=== PATIENT | female | born 1935 | race Caucasian/White ===

== ENCOUNTER 2017-03-11 19:23 | Emergency (ER) | payer MEDICARE, BC ==
[~2017-03-11] VITALS: Ht 152.4 cm; Wt 107.0 kg
[2017-03-11 19:35] VITALS: Ht 152.4 cm; Wt 107.0 kg
[2017-03-11] MEDS ORDERED: ONDANSETRON 4 MG INJ IV STA (19:39)
[2017-03-11] MEDS ORDERED: SOD CHLORIDE 0.9% 1,000 ML IV STA (19:39)
[2017-03-11] MEDS ORDERED: FAMOTIDINE 20 MG INJ IV STA (19:39)
[2017-03-11] MEDS ORDERED: LORAZEPAM 2 MG INJ IV ONE (20:00)
[2017-03-11 20:11] LABS: BASOPHILS % 0.2 % (0.0-2.0); EOSINOPHILS # 0.1 10^3/ul (0.0-0.5); EOSINOPHILS % 0.5 % (0.0-7.0); HEMATOCRIT 42.5 % (37.0-47.0); HEMOGLOBIN 14.4 g/dl (12.0-16.0); LYMPHOCYTES # 0.8 10^3/ul (0.8-2.9); LYMPHOCYTES % 4.3 % (15.0-51.0); MEAN CORPUSCULAR HEMOGLOBIN 30.8 pg (29.0-33.0); MEAN CORPUSCULAR HGB CONC 33.9 g/dl (32.0-37.0); MEAN CORPUSCULAR VOLUME 90.8 fl (82.0-101.0); MEAN PLATELET VOLUME 10.7 fl (7.4-10.4); MONOCYTE # 0.8 10^3/ul (0.3-0.9); MONOCYTES % 4.4 % (0.0-11.0); NEUTROPHIL # 15.8 10^3/ul (1.6-7.5); NEUTROPHILS % 90.1 % (39.0-77.0); PLATELET COUNT 268 10^3/UL (140-415); RED BLOOD COUNT 4.68 10^6/ul (4.20-5.40); WHITE BLOOD COUNT 17.5 10^3/ul (4.8-10.8)
[2017-03-11 20:34] LABS: ALANINE AMINOTRANSFERASE 55 IU/L (13-69); ALBUMIN 4.1 g/dl (3.3-4.9); ALKALINE PHOSPHATASE 150 IU/L (42-121); AMYLASE 44 U/L (11-123); ANION GAP 14 (8-16); ASPARTATE AMINO TRANSFERASE 70 IU/L (15-46); BILIRUBIN,INDIRECT 0.2 mg/dl (0-1.1); BILIRUBIN,TOTAL 0.2 mg/dl (0.2-1.3); BLOOD UREA NITROGEN 19 mg/dl (7-20); CALCIUM 9.2 mg/dl (8.4-10.2); CARBON DIOXIDE 27 mmol/L (21-31); CHLORIDE 101 mmol/L (97-110); CREATININE 0.66 mg/dl (0.44-1.00); GLUCOSE 158 mg/dl (70-220); POTASSIUM 4.1 mmol/L (3.5-5.1); SODIUM 138 mmol/L (135-144); TOTAL PROTEIN 8.2 g/dl (6.1-8.1)
[2017-03-11] MEDS ORDERED: ATOR20TA38 PO (20:42)
[2017-03-11 20:43] LABS: TROPONIN-I < 0.012 ng/ml (0.00-0.12)
[2017-03-11] MEDS ORDERED: ATEN50TA PO (20:43)
[2017-03-11] MEDS ORDERED: BENA20TA48 PO (20:43)
[2017-03-11] MEDS ORDERED: ERGO500037 PO (20:43)
[2017-03-11] MEDS ORDERED: NORT25CA PO (20:44)
[2017-03-11] MEDS ORDERED: BUS5 PO (20:44)
[2017-03-11] MEDS ORDERED: AMLO-147 PO (20:44)
[2017-03-11] MEDS ORDERED: HYDR25TA6 PO (20:45)
[2017-03-11] MEDS ORDERED: OMEP20CA16 PO (20:45)
[2017-03-11] MEDS ORDERED: VALS160T20 PO (20:45)
[2017-03-11] MEDS ORDERED: TYL500 PO (20:46)
[2017-03-11] MEDS ORDERED: LABETALOL HCL 20MG INJ IV ONE (21:00)
[2017-03-11] MEDS ORDERED: DILTIAZEM 25 MG INJ IV ONE (21:30)
--- NOTE | 2017-03-11 22:00 | RADRPT ---
PROCEDURE: XR Chest. CLINICAL INDICATION: Chest pain TECHNIQUE: Single frontal view of the chest. COMPARISON: None. FINDINGS: Cardiomegaly and atherosclerotic calcifications in the thoracic aorta. Hypoinflated lungs which acce ntuate pulmonary vascular markings. Mild vascular crowding at the left lung base. Otherwise, the dio gs are substantially clear. No signs of pleural fluid or pneumothorax are seen. The osseous structur es and soft tissues are unremarkable. IMPRESSION: 1. Cardiomegaly and atherosclerotic calcifications in the thoracic aorta. 2. Hypoinflated lungs which accentuates pulmonary vascular markings. 3. Mild vascular crowding at the left lung base. RPTAT: [facility] Physician Katelyn Date Time Electronically viewed and signed by Physician Katelyn on 03/11/2017 21:59 RS/
--- NOTE | 2017-03-11 23:02 | ERD ---
ER Documentation Chief Complaint Chief Complaint HTN x 2 hours, took htn med 1 hr ago, vomiting x 30 min. HPI This is an 81-year-old female presents to the emergency department complaining of elevated blood pressure. The patient indicates she was feeling lightheaded which she has experienced in the past with hypertension. She took her blood pressure at home and her systolic was 200/100. She took an amlodipine and atenolol at the onset of her symptoms which was 1 hour ago. She indicated that just prior to arrival she continued to have lightheadedness and dizziness and had an episode of nonbloody nonbilious emesis. 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 She is very susceptible to emesis according to the daughter but has not complained of a headache or neck pain. She has had no fevers or shaking or chills. She denies any abdominal pain. She has no chest pain or pressure that radiates to the neck arm back or jaw. ROS All systems reviewed and are negative except as per history of present illness. Medications Home Meds Reported Medications Acetaminophen* (Tylenol*) 500 Mg Tab, 500 MG PO NEEDED Y for MILD PAIN LEVEL 1-3, TAB 03/11/17 Hydrochlorothiazide* (Hydrochlorothiazide*) 25 Mg Tab, 25 MG PO DAILY, #30 TAB 03/11/17 Omeprazole* (Omeprazole*) 20 Mg Capsule.dr, 20 MG PO DAILY, #30 CAP 03/11/17 Valsartan* (Diovan*) 160 Mg Tablet, 160 MG PO QAM, TAB 03/11/17 Amlodipine Besylate* (Amlodipine Besylate*) 10 Mg Tablet, 10 MG PO DAILY, #30 TAB 03/11/17 Buspirone Hcl* (Buspar*) 5 Mg Tab, 5 MG PO BID, TAB 03/11/17 Nortriptyline Hcl* (Nortriptyline Hcl*) 25 Mg Capsule, 25 MG PO BID, CAP 03/11/17 Atenolol* (Atenolol*) 50 Mg Tablet, 50 MG PO BID, #60 TAB 03/11/17 Benazepril Hcl* (Benazepril Hcl*) 20 Mg Tablet, 20 MG PO DAILY, #30 TAB 03/11/17 Ergocalciferol (Vitamin D2) (VITAMIN D2) 50,000 Unit Capsule, 17551 UNIT PO Q7D , CAP 03/11/17 Atorvastatin Calcium* (Atorvastatin Calcium*) 20 Mg Tablet, 20 MG PO QHS, #30 TAB 03/11/17 Allergies Allergies: Coded Allergies: No Known Allergy (Unverified , 03/11/17) PMhx/Soc Medical and Surgical Hx: pt denies Surgical Hx History of Surgery: No Anesthesia Reaction: No Hx Neurological Disorder: Yes (ANXIETY ) Hx Respiratory Disorders: No Hx Cardiac Disorders: Yes (HTN) Hx Psychiatric Problems: No Hx Miscellaneous Medical Probl: No Hx Alcohol Use: No Hx Substance Use: No Hx Tobacco Use: No Smoking Status: Unknown if ever smoked Physical Exam Vitals Vital Signs Date Time Temp Pulse Resp B/P Pulse Ox O2 Delivery O2 Flow Rate FiO2 03/11/17 20:00 98.2 81 20 174/81 98 Nasal Cannula 03/11/17 19:35 98.2 97 20 181/92 92 Physical Exam Constitutional:Well-developed. Well-nourished. HEENT:Normocephalic. Atraumatic.Pupils were equal round reactive to light. Moist mucous membranes.No tonsillar exudates. Fundoscopy exam shows sharp optic disks and venous pulsations were present. Neck: No nuchal rigidity. No lymphadenopathy. No posterior cervical spine tenderness or step-offs. Respiratory: Not using accessory muscles of respiration.Lungs were clear to auscultation bilaterally. No rhonchi. No rales. No wheezing. Cardiovascular: Regular rate regular rhythm.No murmurs. No rubs were appreciated.S1, S2 normal. Distal pulses are palpable 2+ bilaterally. GI: Abdomen was soft. Nontender. Non Distended. No pulsatile abdominal masses or bruits. No rebound. No guarding. Bowel sounds were present and normal. Muscle skeletal: Full range of motion of both the upper and lower extremities bilaterally.Normal muscle tone.No assymetrical calf tenderness or swelling. Skin: No petechia, no purpura. No lesions on the palms or the soles of the feet. No maculopapular rash. NEURO: Patient was alert, awake, orientated x3. Left sided facial droop with mass over the right mandible which is the patient's baseline from previous tumor removal. Patient only able to ambulate with a walker and therefore at this time gait was not observed.Speech had started 3 which is also the patient' s baseline from previous surgical intervention of the tumor. No focal neurological deficits. Result Diagram: 03/11/17195303/11/171953 Results 24 hrs Laboratory Tests Test 03/11/17 19:54 White Blood Count 17.510^3/ul Red Blood Count 4.6810^6/ul Hemoglobin 14.4g/dl Hematocrit 42.5% Mean Corpuscular Volume 90.8fl Mean Corpuscular Hemoglobin 30.8pg Mean Corpuscular Hemoglobin Concent 33.9g/dl Red Cell Distribution Width 14.0% Platelet Count 29831^3/UL Mean Platelet Volume 10.7fl Neutrophils % 90.1% Lymphocytes % 4.3% Monocytes % 4.4% Eosinophils % 0.5% Basophils % 0.2% Nucleated Red Blood Cells % 0.0/100WBC Neutrophils # 15.810^3/ul Lymphocytes # 0.810^3/ul Monocytes # 0.810^3/ul Eosinophils # 0.110^3/ul Basophils # 0.010^3/ul Nucleated Red Blood Cells # 0.010^3/ul Sodium Level 138mmol/L Potassium Level 4.1mmol/L Chloride Level 101mmol/L Carbon Dioxide Level 27mmol/L Anion Gap 14 Blood Urea Nitrogen 19mg/dl Creatinine 0.66mg/dl Glucose Level 158mg/dl Calcium Level 9.2mg/dl Total Bilirubin 0.2mg/dl Direct Bilirubin 0.00mg/dl Indirect Bilirubin 0.2mg/dl Aspartate Amino Transf (AST/SGOT) 70IU/L Alanine Aminotransferase (ALT/SGPT) 55IU/L Alkaline Phosphatase 150IU/L Troponin I < 0.012ng/ml Total Protein 8.2g/dl Albumin 4.1g/dl Globulin 4.10g/dl Albumin/Globulin Ratio 1.00 Amylase Level 44U/L Lipase 29U/L Current Medications Medications (Trade) Dose Ordered Sig/Krishna Route PRN Reason Start Time Stop Time Status Last Admin Dose Admin Sodium Chloride (NS) 1,000 ml @ 1,000 mls/hr Q1H STAT IV 03/11/17 19:39 03/11/17 20:38 DC 03/11/17 20:29 Ondansetron HCl (Zofran Inj) 4 mg ONCE STAT IV 03/11/17 19:39 03/11/17 19:41 DC 03/11/17 19:58 Famotidine (Pepcid Iv) 20 mg ONCE STAT IV 03/11/17 19:39 03/11/17 19:41 DC 03/11/17 19:58 Lorazepam (Ativan) 1 mg ONCE ONCE IV 03/11/17 20:00 03/11/17 20:01 DC 03/11/17 19:58 Labetalol HCl (Labetalol) 10 mg ONCE ONCE IV 03/11/17 21:00 03/11/17 21:05 DC 03/11/17 22:16 Diltiazem HCl (Cardizem Iv) 10 mg ONCE ONCE IV 03/11/17 21:30 03/11/17 21:31 Cancel Procedures/MDM This patient presented to the emergency department with severely elevated blood pressure. My differential diagnosis included but was not limited to conditions that could end-organ damage such as acute coronary syndrome, acute pulmonary edema, aortic dissection, subarachnoid hemorrhage, intracerebral hemorrhage, cerebral infarction, withdrawal syndromes from beta blockers, or states of catecholamine excess such as pheochromocytoma or drug intoxication. Ancillary lab work was obtained. There was no elevation in the BUN and creatinine to suggest acute renal failure. Electrolytes were normal. Cardiac enzyme was normal and the 12 lead EKG showed no acute ischemic changes or left ventricular hypertrophy. 12 Lead EKG tracing ordered and reviewed by myself showed: Normal sinus rhythm of 90 bpm and no arrhythmia. SD interval normal. QRS duration normal. Left ventricular hypertrophy No ST segment elevation No ST segment depression. No changes consistent with acute ischemia. The patient did have an episode of nonbloody nonbilious emesis emesis in the emergency department and therefore administered IV Zofran. The patient also appeared very anxious and was given IV Ativan. She continued to be watched in the emergency department over several hours with no recurrence of her symptoms such as vomiting and there is no headache. The patient will comfortable being discharged home. Given that the patient had an absence of cerebral, ocular, cardiac or renal damage the hypertensive urgency was treated with IV agents in the emergency room with improvement of the patient's blood pressure. The patient likely appeared to be complaint with primary care physician and will follow up with their PCP in the next 24-48 hours. They were instructed to return to the emergency department at anytime if there is any worsening of their condition such as development of chest pain or a headache. They were instructed to resume previous medication regimen or initiate a suitable medication regimen under care of the PCP to enable proper monitoring for drug reactions. The patient was also informed on the adverse side effects and adverse drug interactions of the medications prescribed to them by myself. The patient gave informed consent to the prescription of the new medication. Departure Diagnosis: Primary Impression: Hypertensive urgency Additional Impression: Vomiting Vomiting type: unspecified Vomiting Intractability: non-intractable Nausea presence: with nausea Qualified Code: R11.2 - Non-intractable vomiting with nausea, unspecified vomiting type Condition: BUTCH Artis Mar 11, 2017 23:02
--- NOTE | 2017-03-11 23:19 | RADRPT ---
PROCEDURE: CT Brain without contrast. CLINICAL INDICATION: Headache and vomiting with hypertension. TECHNIQUE: A CT of the brain was performed utilizing axial imaging from the skull base through the vertex without IV contrast. Multiplanar reformatted images were made. Images were reviewed on a [id number] workstation. The CTDIvol is 44.58 mGy and the DLP is 810.25 mGycm. DICOM images are available. One or more of the following dose reduction techniques were utilized: 1.) Automated exposure control 2.) Adjustment of the mA +/- kV according to patient's size 3.) Use of iterative reconstruction technique. COMPARISON: None FINDINGS: Chronic changes of atrophy and small vessel disease of white matter. There is no intracranial hemorrhage, mass effect, or midline shift. No extra-axial fluid collection is seen. The ventricles and sulci are otherwise normal in size and configuration. The density of th e brain is otherwise normal, and the blue white matter differentiation appears well-preserved. The visualized paranasal sinuses and osseous structures are grossly unremarkable. IMPRESSION: 1. 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 2. Otherwise, no acute process in the head. RPTAT: [facility] Physician Katelyn Date Time Electronically viewed and signed by Physician Katelyn on 03/11/2017 23:18 RS/
[2017-03-11] MEDS ORDERED: METOCLOPRAMIDE 10 MG INJ IV ONE (23:30)
[2017-03-11] MEDS ORDERED: ONDA4TAB14 PO (23:58)
[2017-03-12 00:30] VITALS: BP 153/142; PULSE 82; RESP 22; TEMP 98.2
[2017-03-12] MEDS ORDERED: hydrALAzine 20 MG INJ IV ONE (00:30)
== END 2017-03-12 00:54 | disposition home or self-care (01) ==
LOC: E/R 19:23
DX: I16.0 Hypertensive urgency (principal); R11.2 Nausea with vomiting, unspecified; R51 Headache
CPT/HCPCS: 36415; 70450; 71010; 80053; 82150; 83690; 84484; 85025; 96374; 96375; 99285; J0360; J2060; J2405; J2765; J7030